=== PATIENT | male | born 1990 | race Caucasian/White ===

== ENCOUNTER 2023-07-06 19:39 | Emergency (ER) | payer MEDICAID ==
[~2023-07-06] VITALS: Ht 180.3 cm; Wt 95.3 kg
[2023-07-06 20:09] VITALS: BP_SYST 150; PULSE 74; RESP 16; TEMP 97.7; O2SAT 97
[2023-07-06] MEDS ORDERED: FLUORESCEIN SODIUM 1 MG OPHTHALMIC STRIP OP ONE (22:00)
[2023-07-06] MEDS ORDERED: ERYTHROMYCIN BASE 0.5% EYE OINT...G. OP ONE (22:00)
[2023-07-06] MEDS ORDERED: PROPARACAINE (OPTHANINE 0.5%) 15 ML DROPS OP ONE (22:00)
[2023-07-07 00:38] VITALS: BP_SYST 124; PULSE 84; RESP 16; TEMP 98.3; O2SAT 99
== END 2023-07-07 00:27 | disposition home or self-care (01) ==
LOC: SED 19:39
DX: S05.02XA Injury of conjunctiva and corneal abrasion without foreign body, left eye, initial encounter (principal); Z79.899 Other long term (current) drug therapy; W22.8XXA Striking against or struck by other objects, initial encounter; Y93.89 Activity, other specified; Y92.89 Other specified places as the place of occurrence of the external cause; Y99.8 Other external cause status
CPT/HCPCS: 99281; 99283

== ENCOUNTER 2024-03-31 21:42 | Emergency (ER) | payer MEDICAID ==
[~2024-03-31] VITALS: Ht 180.3 cm; Wt 93.0 kg
[2024-03-31 21:48] VITALS: BP_SYST 119; PULSE 67; RESP 18; TEMP 97.9; O2SAT 96
[2024-03-31] MEDS ORDERED: BALANCED SALT IRRIG SOLN 15 ML IO ONE (22:03)
[2024-03-31] MEDS ORDERED: GENT5DRO7 EACH EYE (22:32)
[2024-03-31 23:29] VITALS: BP_SYST 119; PULSE 67; RESP 18; TEMP 97.9; O2SAT 96
== END 2024-03-31 22:44 | disposition home or self-care (01) ==
LOC: SED 21:42
DX: H57.8A1 Foreign body sensation, right eye (principal)
CPT/HCPCS: 99283